=== PATIENT | male | born 1975 | race Caucasian/White ===

== ENCOUNTER 2019-02-17 12:11 | Inpatient (IN) | payer OTHER ==
[2019-02-17 13:06] VITALS: BMI 32.5
--- NOTE | 2019-02-17 15:03 | HP ---
CIWA Score - Admission Criteria [facility] Guidelines: Admission for Medically Managed Detox: Requires at least one of the followin. CIWA greater than 12 2. Seizures within the past 24 hours 3. Delirium tremens within the past 24 hours 4. Hallucinations within the past 24 hours 5. Acute intervention needed for co occurring medical disorder 6. Acute intervention needed for co occurring psychiatric disorder 7. Severe withdrawal that cannot be handled at a lower level of care (continued vomiting, continued diarrhea, abnormal vital signs) requiring intravenous medication and/or fluids 8. Admission ROS [facility] - HPI Chief Complaint: I need help to come in for rehab from heroin,cocaine,mmtp 140 mgs/day,last medicated today Allergies/Adverse Reactions: Allergies Allergy/AdvReac Type Severity Reaction Status Date / Time No Known Allergies Allergy Verified 02/17/19 12:54 History of Present Illness: this 43 years old male with heroin,cocaine and xanax dependence,mmtp 120 mgs/day ,last medicated today, seeking help last treatment [facility] 11/29 hepatitis c weight loss hypertension on clonidine longest period of sobriety 2 years anxiety ,depression,insomnia plan to go back to methadone program after rehab - Ebola screening Have you traveled outside of the country in the last 21 days: No Have you had contact with anyone from an Ebola affected area: No Do you have a fever: No - Review of Systems Constitutional: Loss of Appetite, Malaise, Night Sweats, Weakness, Unintentional Wgt. Loss EENT: reports: Nose Congestion Respiratory: reports: No Symptoms reported Cardiac: reports: No Symptoms Reported GI: reports: No Symptoms Reported : reports: No Symptoms Reported Musculoskeletal: reports: Muscle Pain Integumentary: reports: No Symptoms Reported Neuro: reports: No Symptoms reported Endocrine: reports: No Symptoms Reported Hematology: reports: No Symptoms Reported Psychiatric: reports: No Sypmtoms Reported, Judgement Intact, Mood/Affect Appropiate, Orientated x3, Anxious, Depressed, other (inomnia) Patient History - Patient Medical History Hx Anemia: No Hx Asthma: No Hx Chronic Obstructive Pulmonary Disease (COPD): No Hx Cancer: No Hx Cardiac Disorders: No Hx Congestive Heart Failure: No Hx Hypertension: No Hx Hypercholesterolemia: No Hx Pacemaker: No HX Cerebrovascular Accident: No Hx Seizures: No Hx Dementia: No Hx Diabetes: No Hx Gastrointestinal Disorders: No Hx Liver Disease: No Hx Genitourinary Disorders: No Hx Sexually Transmitted Disorders: No Hx Renal Disease (ESRD): No Hx Thyroid Disease: No Hx Human Immunodeficiency Virus (HIV): No (last 02/26 negative) Hx Hepatitis C: Yes (no treatment) Hx Depression: Yes Hx Suicide Attempt: No Hx Bipolar Disorder: No Hx Schizophrenia: No Other Medical History: no suicidal,no homicidal - Patient Surgical History Past Surgical History: No Hx Neurologic Surgery: No Hx Cataract Extraction: No Hx Cardiac Surgery: No Hx Lung Surgery: No Hx Breast Surgery: No Hx Breast Biopsy: No Hx Abdominal Surgery: No Hx Appendectomy: No Hx Cholecystectomy: No Hx Genitourinary Surgery: No Hx Section: No Hx Orthopedic Surgery: No Anesthesia Reaction: No - PPD History Previous Implant?: Yes Documented Results: Negative w/o proof Implanted On Prior [facility] Admission?: No PPD to be Administered?: Yes - Smoking Cessation Smoking history: Never smoked Have you smoked in the past 12 months: No Hx Chewing Tobacco Use: No - Substance & Tx. History Hx Alcohol Use: No Hx Substance Use: Yes Substance Use Type: Cocaine, Heroin, Tranquilizers Hx Substance Use Treatment: Yes ([facility] 11/29) - Substances abused Heroin Substance route: Injection Frequency: Daily Amount used: 10bags Age of first use: 13 Date of last use: 02/16/19 Alprazolam (Xanax) Substance route: Oral Frequency: Daily Amount used: 12mg Age of first use: 18 Date of last use: 02/16/19 Cocaine Substance route: Injection Frequency: Daily Amount used: $30 Age of first use: 13 Date of last use: 02/16/19 Family Disease History - Family Disease History Family History: Denies Admission Physical Exam [facility] - Vital Signs Vital Signs: Vital Signs - 24 hr 02/17/19 12:59 Temperature 98.2 F Pulse Rate 67 Respiratory 18 Rate Blood Pressure 157/95 - Physical General Appearance: Yes: Within Normal Limits HEENTM: Yes: Within Normal Limits, Hearing grossly Normal, Normal ENT Inspection Respiratory: Yes: Lungs Clear, Normal Breath Sounds, No Respiratory Distress Neck: Yes: Within Normal Limits, Supple, Trachea in good position Breast: Yes: Within Normal Limits Cardiology: Yes: Within Normal Limits, Regular Rhythm, Regular Rate, S1, S2 Abdominal: Yes: Within Normal Limits, Normal Bowel Sounds, Non Tender, Flat, Soft Genitourinary: Yes: Within Normal Limits Back: Yes: Within Normal Limits Musculoskeletal: Yes: Within Normal Limits, full range of Motion Extremities: Yes: Within Normal Limits Neurological: Yes: Within Normal Limits, flyer repairer II-XII NML intact, Fully Oriented, Alert, Motor Strength 5/5 Integumentary: Yes: Dry, Track Broderick Lymphatic: Yes: Within Normal Limits - Diagnostic (1) Heroin dependence Current Visit: Yes Status: Acute (2) Cocaine dependence Current Visit: Yes Status: Acute (3) Sedative dependence Current Visit: Yes Status: Acute (4) Methadone maintenance therapy patient Current Visit: Yes Status: Acute (5) Weight loss Current Visit: Yes Status: Acute Cleared for Admission [facility] - Detox or Rehab Claeared for Rehab Admission: Yes Breathalyzer - Breathalyzer Breathalyzer: 0 Urine Drug Screen - Test Device Lot number: [id number] Expiration date: 11/10/20 - Control Is test valid?: Yes - Results Drug screen NEGATIVE: No Urine drug screen results: TENZIN-Cocaine, FEN-Fentanyl, MOP-Opiates, OXY-Oxycodone , MTD-Methadone Inpatient Rehab Admission - Rehab Decision to Admit Inpatient rehab admission?: No
[2019-02-17] MEDS ORDERED: MAG HYDROX/AL HYDROX/SIMETH 30 ML UNIT-DOSE CUP PO PRN (15:11)
[2019-02-17] MEDS ORDERED: IBUPROFEN 400 MG TABLET (FP) PO PRN (15:11)
[2019-02-17] MEDS ORDERED: MAGNESIUM CITRATE 300 ML BOTTLE PO PRN (15:11)
[2019-02-17] MEDS ORDERED: ACETAMINOPHEN 325 MG TABLET (FP) PO PRN (15:11)
[2019-02-17] MEDS ORDERED: MENTHOL/PHENOL 1 EACH UD MM PRN (15:11)
[2019-02-17] MEDS ORDERED: hydrOXYzine PAMOATE 50 MG CAPSULE (FP) PO PRN (15:11)
[2019-02-17] MEDS ORDERED: MAGNESIUM HYDROX 2400MG/30ML ORAL SUSPENSION 30 ML CUP PO PRN (15:11)
[2019-02-17] MEDS ORDERED: guaiFENesin 200 MG/10 ML 10 ML UNIT-DOSE CUPS PO PRN (15:11)
[2019-02-17] MEDS ORDERED: LOPERAMIDE HCL 2 MG CAPSULE PO PRN (15:11)
[2019-02-17] MEDS ORDERED: P-EPHED 60MG/TRIPROLIDI 2.5MG TABLET PO PRN (15:11)
[2019-02-17] MEDS ORDERED: TUBERCULIN PPD 5 TU/0.1ML VIAL ID ONE (16:15)
[2019-02-17 17:08] LABS: HEMATOCRIT 44.4 % (35.4-49); HEMOGLOBIN 14.3 GM/dL (11.7-16.9); MCH 29.2 pg (25.7-33.7); MCHC 32.3 g/dl (32.0-35.9); MEAN CELL VOLUME 90.5 fl (80-96); MEAN PLT VOLUME 12.3 fl (7.5-11.1); PLATELET COUNT 143 K/MM3 (134-434); WHITE BLOOD COUNT 12.1 K/mm3 (4.0-10.0)
[2019-02-17 17:10] LABS: BILIRUBIN,TOTAL 0.8 mg/dL (0.2-1); CALCIUM 10.1 mg/dL (8.5-10.1); CREATININE 1.2 mg/dL (0.55-1.3); POTASSIUM 4.1 mmol/L (3.5-5.1); TOT PROT 8.4 g/dl (6.4-8.2)
[2019-02-17] MEDS: METHOCARBAMOL 500 MG TABLET PO SCH ×2 (18:43→21:28)
[2019-02-17] MEDS: THIAMINE HCL 100 MG TABLET (FP) PO SCH (21:27)
[2019-02-17] MEDS: MELATONIN 5 MG TABLETS PO PRN (21:28)
[2019-02-17] MEDS: cloNIDine HCL 0.1 MG TABLET PO SCH (21:29)
[2019-02-18] MEDS ORDERED: METHADONE HCL 10 MG TABLET ONE (05:20)
[2019-02-18] MEDS ORDERED: METHADONE HCL 40 MG DISPERSABLE TABLET ONE (05:20)
[2019-02-18] MEDS ORDERED: TUBERCULIN PPD 5 TU/0.1ML VIAL ID ONE (05:21)
[2019-02-18] MEDS ORDERED: METHADONE HCL 10 MG TABLET PO SCH (06:00)
[2019-02-18] MEDS: METHADONE 120 MG, METHADONE 20 MG PO SCH (06:23)
[2019-02-18] MEDS: cloNIDine HCL 0.1 MG TABLET PO SCH ×2 (09:58→21:21)
[2019-02-18] MEDS: PRENATAL VITAMINS W/ FOLIC ACID TABLET (FP) PO SCH (09:58)
[2019-02-18] MEDS: METHOCARBAMOL 500 MG TABLET PO SCH ×4 (09:58→21:21)
--- NOTE | 2019-02-18 11:33 | PN ---
[facility] Progress Note Note: patient has history of hepatitis c
[2019-02-18 12:09] LABS: URINE APPEARANCE Clear; URINE BILIRUBIN Negative (NEGATIVE); URINE COLOR Yellow; URINE GLUCOSE (UA) Negative (NEGATIVE); URINE KETONE Negative (NEGATIVE); URINE LEUK ESTERASE Negative (NEGATIVE); URINE NITRITE Negative (NEGATIVE); URINE PROTEIN Negative (NEGATIVE); URINE UROBILINOGEN 0.2 mg/dL (0.2-1.0)
[2019-02-18] MEDS: MELATONIN 5 MG TABLETS PO PRN (21:21)
[2019-02-18] MEDS: THIAMINE HCL 100 MG TABLET (FP) PO SCH (21:22)
[2019-02-19] MEDS ORDERED: METHADONE HCL 10 MG TABLET ONE (05:18)
[2019-02-19] MEDS ORDERED: METHADONE HCL 40 MG DISPERSABLE TABLET ONE (05:19)
[2019-02-19] MEDS: METHADONE 120 MG, METHADONE 20 MG PO SCH (06:26)
[2019-02-19] MEDS: METHOCARBAMOL 500 MG TABLET PO SCH ×4 (09:56→21:55)
[2019-02-19] MEDS: PRENATAL VITAMINS W/ FOLIC ACID TABLET (FP) PO SCH (09:56)
[2019-02-19] MEDS: cloNIDine HCL 0.1 MG TABLET PO SCH ×2 (09:57→21:54)
--- NOTE | 2019-02-19 12:27 | EKG ---
Test Reason : Blood Pressure : / mmHG Vent. Rate : 063 BPM Atrial Rate : 063 BPM P-R Int : 142 ms QRS Dur : 088 ms QT Int : 492 ms P-R-T Axes : 019 047 051 degrees QTc Int : 503 ms NORMAL SINUS RHYTHM NONSPECIFIC ST AND T WAVE ABNORMALITY PROLONGED QT ABNORMAL ECG NO PREVIOUS ECGS AVAILABLE Confirmed by AMARA BARNES MD ([id number]) on 02/19/2019 12:27:31 PM Referred By: Confirmed By:AMARA BARNES MD
[2019-02-19] MEDS: THIAMINE HCL 100 MG TABLET (FP) PO SCH (22:15)
[2019-02-20] MEDS ORDERED: METHADONE HCL 40 MG DISPERSABLE TABLET ONE (02:57)
[2019-02-20] MEDS ORDERED: METHADONE HCL 10 MG TABLET ONE (02:57)
[2019-02-20] MEDS: METHADONE 120 MG, METHADONE 20 MG PO SCH (06:34)
--- NOTE | 2019-02-20 09:21 | PN ---
[facility] Progress Note Note: additional information patient is admitted to rehab on 02/17/19
[2019-02-20] MEDS: cloNIDine HCL 0.1 MG TABLET PO SCH ×2 (10:21→21:15)
[2019-02-20] MEDS: PRENATAL VITAMINS W/ FOLIC ACID TABLET (FP) PO SCH (10:21)
[2019-02-20] MEDS: METHOCARBAMOL 500 MG TABLET PO SCH ×4 (10:21→21:15)
--- NOTE | 2019-02-20 13:45 | PN ---
[facility] Progress Note Note: PATIENT C/O "NOT FEELING WELL". PATIENT C/O SORE THROAT, CHILLS AND ANXIETY. Laboratory Tests 02/17/19 02/17/19 02/17/19 15:45 15:45 15:45 WBC 12.1 H RBC 4.90 Hgb 14.3 Hct 44.4 MCV 90.5 MCH 29.2 MCHC 32.3 RDW 15.0 Plt Count 143 MPV 12.3 H Sickle Cell Screen Sodium 138 Potassium 4.1 Chloride 102 Carbon Dioxide 29 Anion Gap 7 L BUN 19 H Creatinine 1.2 Est GFR (CKD-EPI)AfAm 84.13 Est GFR (CKD-EPI)NonAf 72.59 Random Glucose 108 H Calcium 10.1 Total Bilirubin 0.8 AST 64 H ALT 88 H Alkaline Phosphatase 80 Total Protein 8.4 H Albumin 4.0 Urine Color Urine Appearance Urine pH Ur Specific [place] Urine Protein Urine Glucose (UA) Urine Ketones Urine Blood Urine Nitrite Urine Bilirubin Urine Urobilinogen Ur Leukocyte Esterase RPR Titer Nonreactive HIV 1&2 Antibody Screen HIV P24 Antigen 02/17/19 02/17/19 02/18/19 15:45 15:45 08:30 WBC RBC Hgb Hct MCV MCH MCHC RDW Plt Count MPV Sickle Cell Screen Negative Sodium Potassium Chloride Carbon Dioxide Anion Gap BUN Creatinine Est GFR (CKD-EPI)AfAm Est GFR (CKD-EPI)NonAf Random Glucose Calcium Total Bilirubin AST ALT Alkaline Phosphatase Total Protein Albumin Urine Color Yellow Urine Appearance Clear Urine pH 7.0 Ur Specific [place] 1.015 Urine Protein Negative Urine Glucose (UA) Negative Urine Ketones Negative Urine Blood Negative Urine Nitrite Negative Urine Bilirubin Negative Urine Urobilinogen 0.2 Ur Leukocyte Esterase Negative RPR Titer HIV 1&2 Antibody Screen Negative HIV P24 Antigen Negative Vital Signs Temperature 98.1 F 02/20/19 09:50 Pulse Rate 81 02/20/19 13:29 Respiratory Rate 18 02/20/19 13:29 Blood Pressure 153/103 H 02/20/19 13:29 O2 Sat by Pulse Oximetry (%) PE: ALERT AND ORIENTED X 3 SKIN WARM, MILD FACIAL MOISTURE +PERRLA,EOMS INTACT BL PHARYNX PINK, NO VISIBLE EXUDATE CAR S1S2 RESP CTA BL EXT FULL ROM, NO EDEMA A/P: PHARYNGITIS ELEVATED BP (LIKELY ANXIETY/STRESS RELATED) ELEVATED WBC THROAT C/S REPEAT CBC IN AM CONTINUE CLONIDINE AND VISTARIL MONITOR CLINICALLY
[2019-02-20] MEDS: THIAMINE HCL 100 MG TABLET (FP) PO SCH (21:14)
[2019-02-20] MEDS: MELATONIN 5 MG TABLETS PO PRN (21:14)
[2019-02-21] MEDS ORDERED: METHADONE HCL 10 MG TABLET ONE (03:14)
[2019-02-21] MEDS ORDERED: METHADONE HCL 40 MG DISPERSABLE TABLET ONE (03:14)
[2019-02-21] MEDS: METHADONE 120 MG, METHADONE 20 MG PO SCH (06:18)
[2019-02-21 07:08] VITALS: BP 138/96; PULSE 61; TEMP 98.4
--- NOTE | 2019-02-21 08:35 | PN ---
[facility] Progress Note (SOAP) Subjective: Patient is leaving AMA. States, "I have things to do." Objective: A+O x3. no neurological deficits noted, Heart rate regular, lungs, clear, abd soft, non-tender, non-distended. 02/21/19 08:32 CBC, BMP 02/17/19 15:45 02/17/19 15:45 Vital Signs (72 hours) 02/18/19 02/18/19 02/19/19 10:00 15:13 00:30 Temperature 98.1 F Pulse Rate 98 H 76 Respiratory 18 18 Rate Blood Pressure 104/69 132/97 02/19/19 02/19/19 02/19/19 03:30 07:00 10:00 Temperature 98.5 F Pulse Rate 58 L 68 Respiratory 18 18 Rate Blood Pressure 146/91 151/95 02/19/19 02/20/19 02/20/19 22:00 00:30 03:30 Temperature 98.4 F Pulse Rate 70 Respiratory 18 18 18 Rate Blood Pressure 145/83 02/20/19 02/20/19 02/20/19 07:12 09:50 13:29 Temperature 98.3 F 98.1 F Pulse Rate 70 109 H 81 Respiratory 18 18 18 Rate Blood Pressure 141/99 149/109 H 153/103 H 02/20/19 02/21/19 02/21/19 22:00 00:30 07:08 Temperature 98.4 F Pulse Rate 69 61 Respiratory 18 18 18 Rate Blood Pressure 147/97 138/96 02/21/19 08:34 Assessment: Medically stable for discharge Discharge Dx: Heroin Dependence, chronic Cocaine Dependence, chronic MMTP 02/21/19 08:33 Plan: Medically stable for discharge; Will seek after care and medical care at [facility]. States that he does not need any home medications.
== END 2019-02-21 08:30 | disposition left against medical advice (07) | DRG 770 ==
LOC: YASAS 12:11 → Y3W 15:13
PROVIDERS: ADMIT Neuromusculoskeletal Medicine & OMM; ATTEND Neuromusculoskeletal Medicine & OMM
PROC: HZ42ZZZ Group Counseling for Substance Abuse Treatment, Cognitive-Behavioral (ICD-10-PCS; principal; 2019-02-17)
DX: F11.20 Opioid dependence, uncomplicated (principal); F13.20 Sedative, hypnotic or anxiolytic dependence, uncomplicated; F14.20 Cocaine dependence, uncomplicated; I10 Essential (primary) hypertension; J02.9 Acute pharyngitis, unspecified; D72.829 Elevated white blood cell count, unspecified; R63.4 Abnormal weight loss; B18.2 Chronic viral hepatitis C
CPT/HCPCS: 36415; 71045-TC-FY; 80053; 81003; 85027; 85660; 86593; 87070; 87389; 93005; 93010; J0735